=== PATIENT | male | born 1935 | race Caucasian/White ===

== ENCOUNTER → 2017-07-03 | Outpatient (CLI) | payer MEDICARE ==
[~2017-07-03] VITALS: Ht 180.3 cm; Wt 106.6 kg
[2017-07-03 12:38] LABS: Basophils # (auto) 0 uL; Basophils % (auto) 0.4 % (0.0-2.0); CONDITION Y; Eosinophils # (auto) 0.1 uL; Eosinophils % (auto) 1.3 % (0.0-7.0); Hematocrit 45.1 % (41.0-53.0); Hemoglobin 15.2 g/dL (13.5-17.5); Lymphocytes # (auto) 2.5 uL; Lymphocytes % (auto) 36.9 % (10.0-50.0); Mean Corpuscular Hemoglobin 30.4 pg (28.0-32.0); Mean Corpuscular Hgb Conc. 33.7 g/dL (32.0-36.0); Mean Corpuscular Volume 90.2 fL (80.0-100.0); Mean Platelet Volume 8.8 fL (7.4-10.4); Monocytes # (auto) 0.7 uL; Neutrophils # (auto) 3.5 uL; Neutrophils % (auto) 51.4 % (37.0-80.0); Platelet Count (auto) 188 10^3/uL (140-450); Red Cell Distribution Width 14.5 % (11.6-16.0); White Blood Cell 6.9 10^3/uL (4.4-10.8)
[2017-07-03 13:24] LABS: Albumin 3.7 g/dL (3.4-5.0); Alkaline Phosphatase 92 U/L (45-117); Anion Gap 9 (5-15); Aspartate Aminotransferase 18 U/L (15-37); BUN/Creatinine Ratio 26.6; Bilirubin, Direct < 0.1 mg/dL (0-0.2); Bilirubin, Total 0.6 mg/dL (0.2-1.0); Blood Urea Nitrogen 29 mg/dL (7-18); Calcium 9.9 mg/dL (8.5-10.1); Carbon Dioxide 26 mmol/L (21-32); Chloride 105 mmol/L (98-107); Cholesterol 229 mg/dL (< 200); GFR African American 84 mL/min; GFR Non-African American 69 mL/min; Glucose 101 mg/dL (74-106); HDL Cholesterol 33 mg/dL (40-59); LDL Cholesterol 158 mg/dL (< 100); Potassium 4.1 mmol/L (3.5-5.1); Sodium 140 mmol/L (136-145); Total Protein 7.7 g/dL (6.4-8.2); Triglycerides 221 mg/dL (< 150)
[2017-07-03 13:45] LABS: Urine Color Yellow (Yellow); Urine Glucose Normal (Normal)
[2017-07-03 13:47] LABS: Urine Bilirubin Negative (Negative); Urine Blood Negative /uL (Negative); Urine Ketone Negative (Negative); Urine Nitrite Negative (Negative); Urine Urobilinogen Normal (Negative); Urine pH 6.5 (5.0-8.0)
== END | disposition home or self-care (01) ==
LOC: Rad HDHVI 08:46
PROVIDERS: ATTEND Internal Medicine Cardiovascular Disease
DX: I10 Essential (primary) hypertension (principal); E78.00 Pure hypercholesterolemia, unspecified; K74.1 Hepatic sclerosis; E11.9 Type 2 diabetes mellitus without complications; R97.20 Elevated prostate specific antigen [PSA]; R53.81 Other malaise; E03.9 Hypothyroidism, unspecified; D64.9 Anemia, unspecified; E55.9 Vitamin D deficiency, unspecified; N39.0 Urinary tract infection, site not specified; I08.0 Rheumatic disorders of both mitral and aortic valves; Z95.1 Presence of aortocoronary bypass graft
CPT/HCPCS: 36415; 78452; 80048; 80061; 80076; 81003; 82306; 83036; 84153; 84403; 84443; 85025; 93017; 96374; A9500